=== PATIENT | female | born 1930 | race African-American/Black ===

== ENCOUNTER 2017-09-27 16:03 | Inpatient (IN) | payer MEDICARE, BC ==
[~2017-09-27] VITALS: Ht 165.1 cm; Wt 75.3 kg
[~2017-09-27 16:03] MED LIST: AMLO2.5T45 PO; AZAT50TA24 PO; BRIM15DR2 EACHEYE; CLOP75TA16 PO; FAMO40TA70 PO; FERR325T6 PO; LEVO100T9 PO; METF500T4 PO; PRAV20TA57 PO; REV20 PO; TIOT18CA3 INH; TRAM50TA3 PO
[2017-09-27] MEDS ORDERED: ONDANSETRON HCL 4MG TABLET PO PRN (17:00)
[2017-09-27] MEDS ORDERED: CLONIDINE 0.1MG TABLET PO PRN (17:00)
[2017-09-27] MEDS ORDERED: IPRATROPIUM/ALBUTEROL 0.5-3(2.5)MG/3ML NEB HHN PRN (17:00)
[2017-09-27 17:30] VITALS: BP 100/58
[2017-09-27] MEDS ORDERED: DEXTROSE 50% WATER 50ML SYRINGE IV PRN (18:00)
[2017-09-27] MEDS: METFORMIN HCL 500MG TABLET PO SCH (19:04)
[2017-09-27] MEDS: DOCUSATE SODIUM 250MG CAPSULE PO SCH (19:05)
[2017-09-27] MEDS: IPRATROPIUM/ALBUTEROL 0.5-3(2.5)MG/3ML NEB HHN SCH (19:59)
[2017-09-27 20:00] VITALS: BP 151/62
[2017-09-27] MEDS: AMLODIPINE 5MG TABLET PO SCH (21:00)
[2017-09-27] MEDS: SILDENAFIL CITRATE 20MG TABLET PO SCH (22:44)
[2017-09-27] MEDS: PREGABALIN 50 MG CAPSULE PO SCH (22:44)
[2017-09-28] MEDS: IPRATROPIUM/ALBUTEROL 0.5-3(2.5)MG/3ML NEB HHN SCH ×6 (00:07→21:02)
[2017-09-28] MEDS: HYDROCODONE/ACETAMINOPHEN 10/325MG TABLET PO PRN ×3 (00:48→14:27)
[2017-09-28] MEDS: LEVOTHYROXINE SODIUM 100MCG TABLET PO SCH (06:11)
[2017-09-28] MEDS: BLOOD SUGAR DIAGNOSTIC STRIP TEST SCH ×2 (06:12→17:32)
[2017-09-28] MEDS: SILDENAFIL CITRATE 20MG TABLET PO SCH ×3 (06:12→21:58)
[2017-09-28 06:14] LABS: HEMATOCRIT. 28.7 % (36.0-48.0); HEMOGLOBIN. 9.3 g/dL (12.0-16.0); MEAN CORPUSCULAR HEMOGLOBIN 26.5 pg (28.0-32.0); MEAN PLATELET VOLUME 6.7 fl (7.4-10.4); PLATELET 384 x1000/uL (130-400); RED CELL DISTRIBUTION WIDTH 15.2 % (11.6-14.6)
[2017-09-28 07:19] LABS: CHLORIDE 102 mEq/L (98-107)
[2017-09-28 07:28] LABS: CARBON DIOXIDE 29 mEq/L (21-32); PREALBUMIN 15.7 mg/dL (20.0-40.0)
[2017-09-28 08:00] VITALS: BP 147/49
[2017-09-28] MEDS: INSULIN LISPRO 100 UNITS/ML SUBCUT SCH ×2 (08:00→17:00)
[2017-09-28] MEDS: DOCUSATE SODIUM 250MG CAPSULE PO SCH (08:06)
[2017-09-28] MEDS: AZATHIOPRINE 50MG TABLET PO SCH (08:06)
[2017-09-28] MEDS: CLOPIDOGREL 75MG TABLET PO SCH (08:07)
[2017-09-28] MEDS: METFORMIN HCL 500MG TABLET PO SCH ×2 (08:07→17:13)
[2017-09-28] MEDS: PREGABALIN 50 MG CAPSULE PO SCH ×2 (08:07→21:57)
[2017-09-28] MEDS: AMLODIPINE 5MG TABLET PO SCH ×2 (08:08→21:00)
[2017-09-28] MEDS: ALPHAGAN P 0.1% EYE DROP OP SCH (08:09)
[2017-09-28] MEDS ORDERED: POLYETHYLENE GLYCOL 3350 (17GM) 1 DOSE PACK PO NR ×2 (10:15→20:15)
[2017-09-28 13:24] LABS: CLARITY URINE TURBID (CLEAR); COLOR URINE YELLOW (YELLOW); GLUCOSE URINE NEGATIVE (NEGATIVE); KETONES URINE TRACE (NEGATIVE); LEUKOCYTE ESTERASE URINE 3+ (NEGATIVE); NITRITE URINE NEGATIVE (NEGATIVE); OCCULT BLOOD URINE 3+ (NEGATIVE); PROTEIN URINE 3+ (NEGATIVE); SPECIFIC GRAVITY URINE 1.021 (1.005-1.030); UROBILINOGEN URINE 0.2 E.U./dL (0.2-1.0)
[2017-09-28] MEDS ORDERED: BISACODYL 10MG SUPP PR PRN (13:30)
[2017-09-28] MEDS: LACTULOSE 20G/30ML UDC PO SCH ×3 (14:27→21:57)
[2017-09-28] MEDS ORDERED: NA PHOS,M-B/NA PHOS,DI-BA ENEMA 118ML PR NR (14:30)
[2017-09-28] MEDS ORDERED: BISACODYL 10MG SUPP PR SCH (15:00)
[2017-09-28] MEDS: DOCUSATE SODIUM 100MG CAPSULE PO SCH (17:13)
[2017-09-28 20:00] VITALS: BP 148/58
[2017-09-28 20:59] LABS: PLATELET ESTIMATE NORMAL
[2017-09-28] MEDS: POLYETHYLENE GLYCOL 3350 (17GM) 1 DOSE PACK PO SCH (21:57)
[2017-09-28] MEDS: ATORVASTATIN CALCIUM 20MG TABLET PO SCH (21:57)
[2017-09-29] MEDS: HYDROCODONE/ACETAMINOPHEN 10/325MG TABLET PO PRN ×3 (00:28→20:51)
[2017-09-29] MEDS: IPRATROPIUM/ALBUTEROL 0.5-3(2.5)MG/3ML NEB HHN SCH ×6 (00:30→21:00)
[2017-09-29] MEDS: SILDENAFIL CITRATE 20MG TABLET PO SCH ×3 (06:00→20:49)
[2017-09-29] MEDS: LEVOTHYROXINE SODIUM 100MCG TABLET PO SCH (06:28)
[2017-09-29 06:45] LABS: HEMATOCRIT. 29.3 % (36.0-48.0); HEMOGLOBIN. 9.4 g/dL (12.0-16.0); MEAN CORPUSCULAR HEMOGLOBIN 26.4 pg (28.0-32.0); MEAN CORPUSCULAR VOLUME 82.3 fL (81.0-99.0); MEAN PLATELET VOLUME 6.6 fl (7.4-10.4); PLATELET 450 x1000/uL (130-400); RED BLOOD CELL COUNT 3.56 mill/uL (4.2-5.4); RED CELL DISTRIBUTION WIDTH 15.2 % (11.6-14.6)
[2017-09-29 07:00] VITALS: BP 96/57
[2017-09-29 07:07] LABS: FERRITIN 89 ng/mL (10-291)
[2017-09-29 08:00] LABS: VITAMIN B12 SERUM 1027 pg/mL (211-911)
[2017-09-29] MEDS ORDERED: LEVOFLOXACIN 500MG TABLET PO ONE (08:00)
[2017-09-29] MEDS: INSULIN LISPRO 100 UNITS/ML SUBCUT SCH ×2 (08:00→17:00)
[2017-09-29 08:02] LABS: PHOSPHORUS 3.9 mg/dL (2.5-4.9)
[2017-09-29 08:25] LABS: FOLIC ACID (FOLATE) SERUM > 20.00 ng/mL (>5.38)
[2017-09-29] MEDS: BLOOD SUGAR DIAGNOSTIC STRIP TEST SCH ×2 (08:33→17:55)
[2017-09-29] MEDS: ENOXAPARIN 40MG/0.4ML SYR SUBCUT SCH (08:36)
[2017-09-29] MEDS: ALPHAGAN P 0.1% EYE DROP OP SCH (08:36)
[2017-09-29] MEDS: DOCUSATE SODIUM 100MG CAPSULE PO SCH ×2 (08:37→17:02)
[2017-09-29] MEDS: CLOPIDOGREL 75MG TABLET PO SCH (08:37)
[2017-09-29] MEDS: METFORMIN HCL 500MG TABLET PO SCH ×2 (08:37→17:02)
[2017-09-29] MEDS: PREGABALIN 50 MG CAPSULE PO SCH ×2 (08:37→20:48)
[2017-09-29] MEDS: AMLODIPINE 5MG TABLET PO SCH (08:40)
[2017-09-29] MEDS: BISACODYL 10MG SUPP PR SCH (08:49)
[2017-09-29] MEDS ORDERED: MAGNESIUM 2 G PREMIX 50 ML IV NR (09:00)
[2017-09-29] MEDS ORDERED: NA PHOS,M-B/NA PHOS,DI-BA ENEMA 118ML PR PRN (09:00)
[2017-09-29] MEDS: CEFUROXIME AXETIL 250MG TABLET PO SCH ×2 (09:41→20:47)
[2017-09-29 10:50] VITALS: BP 132/57
[2017-09-29 13:07] LABS: PLATELET ESTIMATE INCREASED
[2017-09-29 14:20] VITALS: BP 120/57
[2017-09-29 20:00] VITALS: BP 131/56
[2017-09-29] MEDS: ATORVASTATIN CALCIUM 20MG TABLET PO SCH (20:47)
[2017-09-29] MEDS: POLYETHYLENE GLYCOL 3350 (17GM) 1 DOSE PACK PO SCH (21:00)
[2017-09-30] MEDS: IPRATROPIUM/ALBUTEROL 0.5-3(2.5)MG/3ML NEB HHN SCH ×6 (00:25→20:28)
[2017-09-30] MEDS: HYDROCODONE/ACETAMINOPHEN 10/325MG TABLET PO PRN ×3 (04:09→16:42)
[2017-09-30] MEDS: LEVOTHYROXINE SODIUM 125MCG TABLET PO SCH (06:50)
[2017-09-30 06:51] LABS: BASOPHILS % 0.6 % (0.0-2.0); HEMATOCRIT. 28.9 % (36.0-48.0); HEMOGLOBIN. 9.3 g/dL (12.0-16.0); LYMPHOCYTES % 7.4 % (20.0-50.0); MEAN CORPUSCULAR HEMOGLOBIN 26.3 pg (28.0-32.0); MEAN CORPUSCULAR VOLUME 81.6 fL (81.0-99.0); MEAN PLATELET VOLUME 6.5 fl (7.4-10.4); MONOCYTES % 11.9 % (2.0-8.0); NEUTROPHILS % 74.1 % (40.0-76.0); PLATELET 457 x1000/uL (130-400); RED BLOOD CELL COUNT 3.54 mill/uL (4.2-5.4)
[2017-09-30] MEDS: SILDENAFIL CITRATE 20MG TABLET PO SCH ×3 (06:51→22:35)
[2017-09-30 07:53] LABS: CARBON DIOXIDE 29 mEq/L (21-32); CHLORIDE 98 mEq/L (98-107); PHOSPHORUS 3.8 mg/dL (2.5-4.9)
[2017-09-30 08:00] VITALS: BP 159/69
[2017-09-30] MEDS: BLOOD SUGAR DIAGNOSTIC STRIP TEST SCH ×2 (08:00→17:00)
[2017-09-30] MEDS: INSULIN LISPRO 100 UNITS/ML SUBCUT SCH ×2 (08:00→17:00)
[2017-09-30] MEDS: CEFUROXIME AXETIL 250MG TABLET PO SCH ×2 (08:53→21:25)
[2017-09-30] MEDS: CLOPIDOGREL 75MG TABLET PO SCH (08:53)
[2017-09-30] MEDS: PREGABALIN 50 MG CAPSULE PO SCH ×2 (08:53→21:25)
[2017-09-30] MEDS: METFORMIN HCL 500MG TABLET PO SCH ×2 (08:53→17:07)
[2017-09-30] MEDS: DOCUSATE SODIUM 100MG CAPSULE PO SCH ×2 (08:53→17:00)
[2017-09-30] MEDS: AMLODIPINE 5MG TABLET PO SCH (08:53)
[2017-09-30] MEDS: AZATHIOPRINE 50MG TABLET PO SCH (08:54)
[2017-09-30] MEDS: BISACODYL 10MG SUPP PR SCH (08:55)
[2017-09-30] MEDS: ENOXAPARIN 40MG/0.4ML SYR SUBCUT SCH (08:55)
[2017-09-30] MEDS: ALPHAGAN P 0.1% EYE DROP OP SCH (09:02)
[2017-09-30] MEDS ORDERED: LEVOFLOXACIN 250MG TABLET PO SCH (11:00)
[2017-09-30 20:00] VITALS: BP 128/59
[2017-09-30] MEDS: POLYETHYLENE GLYCOL 3350 (17GM) 1 DOSE PACK PO SCH (21:00)
[2017-09-30] MEDS: ATORVASTATIN CALCIUM 20MG TABLET PO SCH (21:25)
[2017-09-30] MEDS: CARVEDILOL 3.125 MG TABLET PO SCH (21:25)
[2017-10-01] MEDS: IPRATROPIUM/ALBUTEROL 0.5-3(2.5)MG/3ML NEB HHN SCH ×6 (00:25→20:50)
[2017-10-01] MEDS: HYDROCODONE/ACETAMINOPHEN 10/325MG TABLET PO PRN ×3 (00:53→14:44)
[2017-10-01] MEDS: LEVOTHYROXINE SODIUM 125MCG TABLET PO SCH (06:29)
[2017-10-01] MEDS: SILDENAFIL CITRATE 20MG TABLET PO SCH ×3 (06:29→22:56)
[2017-10-01] MEDS: BLOOD SUGAR DIAGNOSTIC STRIP TEST SCH ×2 (06:30→17:11)
[2017-10-01] MEDS: INSULIN LISPRO 100 UNITS/ML SUBCUT SCH ×2 (06:30→17:00)
[2017-10-01 08:00] VITALS: BP 148/53
[2017-10-01] MEDS: BISACODYL 10MG SUPP PR SCH (09:00)
[2017-10-01] MEDS: AMLODIPINE 5MG TABLET PO SCH (09:16)
[2017-10-01] MEDS: CARVEDILOL 3.125 MG TABLET PO SCH ×2 (09:18→21:00)
[2017-10-01] MEDS: CLOPIDOGREL 75MG TABLET PO SCH (09:19)
[2017-10-01] MEDS: PREGABALIN 50 MG CAPSULE PO SCH ×2 (09:20→21:37)
[2017-10-01] MEDS: DOCUSATE SODIUM 100MG CAPSULE PO SCH ×2 (09:21→17:13)
[2017-10-01] MEDS: METFORMIN HCL 500MG TABLET PO SCH ×2 (09:21→17:13)
[2017-10-01] MEDS: CEFUROXIME AXETIL 250MG TABLET PO SCH (09:22)
[2017-10-01] MEDS: ENOXAPARIN 40MG/0.4ML SYR SUBCUT SCH (09:25)
[2017-10-01] MEDS: ALPHAGAN P 0.1% EYE DROP OP SCH (09:26)
[2017-10-01] MEDS: AMOXICILLIN 500 MG CAPSULE PO SCH ×2 (14:42→22:56)
[2017-10-01 20:00] VITALS: BP 113/53
[2017-10-01] MEDS ORDERED: IRON SUCROSE COMPLEX 100 MG in SODIUM CHLORIDE 0.9% 100 ML IV SCH (21:00)
[2017-10-01] MEDS: POLYETHYLENE GLYCOL 3350 (17GM) 1 DOSE PACK PO SCH (21:00)
[2017-10-01] MEDS: ATORVASTATIN CALCIUM 20MG TABLET PO SCH (21:37)
[2017-10-02] MEDS: HYDROCODONE/ACETAMINOPHEN 10/325MG TABLET PO PRN (00:05)
[2017-10-02] MEDS: IPRATROPIUM/ALBUTEROL 0.5-3(2.5)MG/3ML NEB HHN SCH ×7 (00:38→23:47)
[2017-10-02 06:07] LABS: CARBON DIOXIDE 32 mEq/L (21-32); CHLORIDE 99 mEq/L (98-107); PHOSPHORUS 3.4 mg/dL (2.5-4.9)
[2017-10-02] MEDS: AMOXICILLIN 500 MG CAPSULE PO SCH ×3 (06:07→21:02)
[2017-10-02] MEDS: BLOOD SUGAR DIAGNOSTIC STRIP TEST SCH (06:08)
[2017-10-02] MEDS: LEVOTHYROXINE SODIUM 125MCG TABLET PO SCH (06:08)
[2017-10-02] MEDS: INSULIN LISPRO 100 UNITS/ML SUBCUT SCH (06:08)
[2017-10-02] MEDS: SILDENAFIL CITRATE 20MG TABLET PO SCH ×3 (06:08→21:01)
[2017-10-02 06:39] LABS: HEMATOCRIT. 26.9 % (36.0-48.0); MEAN CORPUSCULAR HEMOGLOBIN 27.5 pg (28.0-32.0); MEAN CORPUSCULAR VOLUME 82.1 fL (81.0-99.0); MEAN PLATELET VOLUME 6.7 fl (7.4-10.4); PLATELET 390 x1000/uL (130-400); RED BLOOD CELL COUNT 3.27 mill/uL (4.2-5.4)
[2017-10-02] MEDS ORDERED: NA PHOS,M-B/NA PHOS,DI-BA ENEMA 118ML PR ONE (07:45)
[2017-10-02 08:00] VITALS: BP 130/60
[2017-10-02] MEDS: LACTULOSE 20G/30ML UDC PO SCH ×2 (08:53→08:58)
[2017-10-02] MEDS: METFORMIN HCL 500MG TABLET PO SCH ×2 (08:54→16:58)
[2017-10-02] MEDS: DOCUSATE SODIUM 100MG CAPSULE PO SCH ×2 (08:54→16:59)
[2017-10-02] MEDS: CLOPIDOGREL 75MG TABLET PO SCH (08:54)
[2017-10-02] MEDS: CARVEDILOL 3.125 MG TABLET PO SCH ×2 (08:54→21:00)
[2017-10-02] MEDS: AMLODIPINE 5MG TABLET PO SCH (08:55)
[2017-10-02] MEDS: ENOXAPARIN 40MG/0.4ML SYR SUBCUT SCH (08:55)
[2017-10-02] MEDS: BISACODYL 10MG SUPP PR SCH (08:58)
[2017-10-02] MEDS: ALPHAGAN P 0.1% EYE DROP OP SCH (08:59)
[2017-10-02] MEDS ORDERED: PREGABALIN 75MG CAPSULE PO SCH (09:00)
[2017-10-02 10:12] LABS: PLATELET ESTIMATE NORMAL
[2017-10-02] MEDS ORDERED: LACTULOSE 20G/30ML UDC PO PRN (13:00)
[2017-10-02 14:00] VITALS: BP 156/50
[2017-10-02 20:00] VITALS: BP 159/55
[2017-10-02] MEDS ORDERED: IRON SUCROSE COMPLEX 100 MG in SODIUM CHLORIDE 0.9% 100 ML IV SCH (21:00)
[2017-10-02] MEDS: ATORVASTATIN CALCIUM 20MG TABLET PO SCH (21:01)
[2017-10-02] MEDS: PREGABALIN 75MG CAPSULE PO SCH (21:01)
[2017-10-02] MEDS: POLYETHYLENE GLYCOL 3350 (17GM) 1 DOSE PACK PO SCH (21:03)
[2017-10-03] MEDS: ACETAMINOPHEN 325MG TABLET PO PRN ×3 (00:20→23:35)
[2017-10-03] MEDS: IPRATROPIUM/ALBUTEROL 0.5-3(2.5)MG/3ML NEB HHN SCH ×5 (04:04→19:54)
[2017-10-03] MEDS: AMOXICILLIN 500 MG CAPSULE PO SCH ×3 (06:02→21:41)
[2017-10-03] MEDS: LEVOTHYROXINE SODIUM 125MCG TABLET PO SCH (06:03)
[2017-10-03] MEDS: SILDENAFIL CITRATE 20MG TABLET PO SCH ×3 (06:03→21:42)
[2017-10-03 08:00] VITALS: BP 149/62
[2017-10-03] MEDS: BISACODYL 10MG SUPP PR SCH (09:00)
[2017-10-03] MEDS: METFORMIN HCL 500MG TABLET PO SCH ×2 (09:09→17:00)
[2017-10-03] MEDS: PREGABALIN 75MG CAPSULE PO SCH ×2 (09:09→21:41)
[2017-10-03] MEDS: DOCUSATE SODIUM 100MG CAPSULE PO SCH ×2 (09:10→17:00)
[2017-10-03] MEDS: CARVEDILOL 3.125 MG TABLET PO SCH ×2 (09:10→21:00)
[2017-10-03] MEDS: CLOPIDOGREL 75MG TABLET PO SCH (09:10)
[2017-10-03] MEDS: AMLODIPINE 5MG TABLET PO SCH (09:10)
[2017-10-03] MEDS: AZATHIOPRINE 50MG TABLET PO SCH (09:10)
[2017-10-03] MEDS: ENOXAPARIN 40MG/0.4ML SYR SUBCUT SCH (09:11)
[2017-10-03] MEDS: ALPHAGAN P 0.1% EYE DROP OP SCH (09:26)
[2017-10-03 17:12] LABS: 25-HYDROXY VITAMIN D3 63 ng/mL (.)
[2017-10-03 20:00] VITALS: BP 132/66
[2017-10-03] MEDS: POLYETHYLENE GLYCOL 3350 (17GM) 1 DOSE PACK PO SCH (21:00)
[2017-10-03] MEDS: IRON SUCROSE COMPLEX 100 MG in SODIUM CHLORIDE 0.9% 50 ML IV SCH (21:41)
[2017-10-03] MEDS: ATORVASTATIN CALCIUM 20MG TABLET PO SCH (21:41)
[2017-10-04] MEDS: IPRATROPIUM/ALBUTEROL 0.5-3(2.5)MG/3ML NEB HHN SCH ×6 (00:19→20:24)
[2017-10-04 05:49] LABS: HEMATOCRIT. 25.1 % (36.0-48.0); HEMOGLOBIN. 8.2 g/dL (12.0-16.0); MEAN CORPUSCULAR VOLUME 82.4 fL (81.0-99.0); MEAN PLATELET VOLUME 6.6 fl (7.4-10.4); PLATELET 384 x1000/uL (130-400); RED BLOOD CELL COUNT 3.04 mill/uL (4.2-5.4); RED CELL DISTRIBUTION WIDTH 14.8 % (11.6-14.6)
[2017-10-04 06:24] LABS: CHLORIDE 102 mEq/L (98-107)
[2017-10-04] MEDS: AMOXICILLIN 500 MG CAPSULE PO SCH ×3 (06:36→22:42)
[2017-10-04] MEDS: SILDENAFIL CITRATE 20MG TABLET PO SCH ×3 (06:36→22:41)
[2017-10-04] MEDS: LEVOTHYROXINE SODIUM 125MCG TABLET PO SCH (06:36)
[2017-10-04 06:46] LABS: CARBON DIOXIDE 29 mEq/L (21-32); PHOSPHORUS 3.1 mg/dL (2.5-4.9)
[2017-10-04 08:00] VITALS: BP 139/64
[2017-10-04] MEDS: ALPHAGAN P 0.1% EYE DROP OP SCH (08:49)
[2017-10-04] MEDS: CLOPIDOGREL 75MG TABLET PO SCH (08:50)
[2017-10-04] MEDS: METFORMIN HCL 500MG TABLET PO SCH ×2 (08:50→16:10)
[2017-10-04] MEDS: PREGABALIN 75MG CAPSULE PO SCH ×2 (08:50→22:41)
[2017-10-04] MEDS: AMLODIPINE 5MG TABLET PO SCH (08:50)
[2017-10-04] MEDS: DOCUSATE SODIUM 100MG CAPSULE PO SCH ×2 (08:50→16:10)
[2017-10-04] MEDS: CARVEDILOL 3.125 MG TABLET PO SCH ×2 (08:51→21:00)
[2017-10-04] MEDS: ENOXAPARIN 40MG/0.4ML SYR SUBCUT SCH (08:51)
[2017-10-04] MEDS: HYDROCODONE/ACETAMINOPHEN 10/325MG TABLET PO PRN ×2 (08:52→13:46)
[2017-10-04] MEDS: BISACODYL 10MG SUPP PR SCH (08:53)
[2017-10-04 12:21] LABS: PLATELET ESTIMATE NORMAL
[2017-10-04 20:00] VITALS: BP 137/60
[2017-10-04] MEDS: POLYETHYLENE GLYCOL 3350 (17GM) 1 DOSE PACK PO SCH (22:40)
[2017-10-04] MEDS: IRON SUCROSE COMPLEX 100 MG in SODIUM CHLORIDE 0.9% 50 ML IV SCH (22:40)
[2017-10-04] MEDS: ATORVASTATIN CALCIUM 20MG TABLET PO SCH (22:41)
[2017-10-05] MEDS: IPRATROPIUM/ALBUTEROL 0.5-3(2.5)MG/3ML NEB HHN SCH ×5 (00:24→21:31)
[2017-10-05] MEDS: NA PHOS,M-B/NA PHOS,DI-BA ENEMA 118ML PR NR (06:15)
[2017-10-05] MEDS ORDERED: ONDANSETRON HCL 4MG TABLET PO PRN (06:15)
[2017-10-05] MEDS ORDERED: NA PHOS,M-B/NA PHOS,DI-BA ENEMA 118ML PR PRN (06:15)
[2017-10-05] MEDS ORDERED: ACETAMINOPHEN 325MG TABLET PO PRN (06:15)
[2017-10-05] MEDS ORDERED: IPRATROPIUM/ALBUTEROL 0.5-3(2.5)MG/3ML NEB HHN PRN (06:15)
[2017-10-05] MEDS ORDERED: IRON SUCROSE COMPLEX 100 MG in SODIUM CHLORIDE 0.9% 50 ML IV SCH (06:15)
[2017-10-05] MEDS ORDERED: CLONIDINE 0.1MG TABLET PO PRN (06:15)
[2017-10-05] MEDS: SILDENAFIL CITRATE 20MG TABLET PO SCH ×3 (06:40→22:35)
[2017-10-05] MEDS: LEVOTHYROXINE SODIUM 125MCG TABLET PO SCH (06:40)
[2017-10-05] MEDS: AMOXICILLIN 500 MG CAPSULE PO SCH ×3 (06:40→22:34)
[2017-10-05 08:00] VITALS: BP 138/52
[2017-10-05] MEDS ORDERED: PREGABALIN 75MG CAPSULE PO SCH (09:00)
[2017-10-05] MEDS ORDERED: ZINC SULFATE 220 MG ( 50 ) CAPSULE PO SCH (09:00)
[2017-10-05] MEDS: ALPHAGAN P 0.1% EYE DROP OP SCH (09:00)
[2017-10-05] MEDS: BISACODYL 10MG SUPP PR SCH (09:00)
[2017-10-05] MEDS: PREGABALIN 75MG CAPSULE PO SCH ×2 (09:00→21:14)
[2017-10-05] MEDS ORDERED: AMLODIPINE 5MG TABLET PO SCH (09:00)
[2017-10-05] MEDS ORDERED: ASCORBIC ACID 500 MG TABLET PO SCH (09:00)
[2017-10-05] MEDS: CLOPIDOGREL 75MG TABLET PO SCH (09:17)
[2017-10-05] MEDS: AZATHIOPRINE 50MG TABLET PO SCH (09:19)
[2017-10-05] MEDS: ZINC SULFATE 220 MG ( 50 ) CAPSULE PO SCH (09:19)
[2017-10-05] MEDS: METFORMIN HCL 500MG TABLET PO SCH ×2 (09:20→17:57)
[2017-10-05] MEDS: ASCORBIC ACID 500 MG TABLET PO SCH (09:20)
[2017-10-05] MEDS: AMLODIPINE 5MG TABLET PO SCH (09:21)
[2017-10-05] MEDS: CARVEDILOL 3.125 MG TABLET PO SCH ×2 (09:21→21:13)
[2017-10-05] MEDS: DOCUSATE SODIUM 100MG CAPSULE PO SCH ×2 (09:22→17:57)
[2017-10-05] MEDS: HYDROCODONE/ACETAMINOPHEN 10/325MG TABLET PO PRN (09:23)
[2017-10-05] MEDS: ENOXAPARIN 40MG/0.4ML SYR SUBCUT SCH (09:23)
[2017-10-05 20:00] VITALS: BP 133/40
[2017-10-05] MEDS: POLYETHYLENE GLYCOL 3350 (17GM) 1 DOSE PACK PO SCH (21:00)
[2017-10-05] MEDS: ATORVASTATIN CALCIUM 20MG TABLET PO SCH (21:13)
[2017-10-06] MEDS: IPRATROPIUM/ALBUTEROL 0.5-3(2.5)MG/3ML NEB HHN SCH ×6 (01:20→20:13)
[2017-10-06] MEDS: NA PHOS,M-B/NA PHOS,DI-BA ENEMA 118ML PR NR (06:48)
[2017-10-06] MEDS: SILDENAFIL CITRATE 20MG TABLET PO SCH ×3 (06:48→23:16)
[2017-10-06] MEDS: AMOXICILLIN 500 MG CAPSULE PO SCH ×2 (06:48→14:17)
[2017-10-06] MEDS: LEVOTHYROXINE SODIUM 125MCG TABLET PO SCH (06:48)
[2017-10-06 07:00] VITALS: BP 147/55
[2017-10-06] MEDS: HYDROCODONE/ACETAMINOPHEN 10/325MG TABLET PO PRN ×2 (07:29→14:18)
[2017-10-06 07:45] LABS: HEMATOCRIT. 26.5 % (36.0-48.0); HEMOGLOBIN. 8.5 g/dL (12.0-16.0); MEAN CORPUSCULAR HEMOGLOBIN 26.6 pg (28.0-32.0); MEAN CORPUSCULAR VOLUME 82.7 fL (81.0-99.0); MEAN PLATELET VOLUME 6.5 fl (7.4-10.4); PLATELET 391 x1000/uL (130-400); RED CELL DISTRIBUTION WIDTH 15.4 % (11.6-14.6)
[2017-10-06 08:21] LABS: CARBON DIOXIDE 33 mEq/L (21-32); CHLORIDE 101 mEq/L (98-107); PHOSPHORUS 3.4 mg/dL (2.5-4.9)
[2017-10-06] MEDS: ALPHAGAN P 0.1% EYE DROP OP SCH (08:58)
[2017-10-06] MEDS: BISACODYL 10MG SUPP PR SCH (09:00)
[2017-10-06 09:20] LABS: PLATELET ESTIMATE NORMAL
[2017-10-06] MEDS: PREGABALIN 50 MG CAPSULE PO SCH ×2 (09:44→21:49)
[2017-10-06] MEDS: ENOXAPARIN 40MG/0.4ML SYR SUBCUT SCH (09:45)
[2017-10-06] MEDS: ASCORBIC ACID 500 MG TABLET PO SCH (09:46)
[2017-10-06] MEDS: AMLODIPINE 5MG TABLET PO SCH (09:46)
[2017-10-06] MEDS: ZINC SULFATE 220 MG ( 50 ) CAPSULE PO SCH (09:46)
[2017-10-06] MEDS: METFORMIN HCL 500MG TABLET PO SCH ×2 (09:46→16:28)
[2017-10-06] MEDS: CLOPIDOGREL 75MG TABLET PO SCH (09:46)
[2017-10-06] MEDS: DOCUSATE SODIUM 100MG CAPSULE PO SCH ×2 (09:46→16:28)
[2017-10-06] MEDS: CARVEDILOL 3.125 MG TABLET PO SCH ×2 (09:47→21:49)
[2017-10-06 13:55] VITALS: BP 114/42
[2017-10-06 20:00] VITALS: BP 124/36
[2017-10-06] MEDS: POLYETHYLENE GLYCOL 3350 (17GM) 1 DOSE PACK PO SCH (21:00)
[2017-10-06] MEDS ORDERED: IRON SUCROSE COMPLEX 100 MG in SODIUM CHLORIDE 0.9% 50 ML IV SCH (21:00)
[2017-10-06] MEDS: ATORVASTATIN CALCIUM 20MG TABLET PO SCH (21:49)
[2017-10-07] MEDS: IPRATROPIUM/ALBUTEROL 0.5-3(2.5)MG/3ML NEB HHN SCH ×6 (00:16→20:39)
[2017-10-07] MEDS: HYDROCODONE/ACETAMINOPHEN 10/325MG TABLET PO PRN ×2 (03:31→20:38)
[2017-10-07] MEDS: NA PHOS,M-B/NA PHOS,DI-BA ENEMA 118ML PR NR (06:31)
[2017-10-07] MEDS: LEVOTHYROXINE SODIUM 125MCG TABLET PO SCH (06:39)
[2017-10-07] MEDS: SILDENAFIL CITRATE 20MG TABLET PO SCH ×3 (06:39→21:58)
[2017-10-07 08:00] VITALS: BP 147/51
[2017-10-07] MEDS: ENOXAPARIN 40MG/0.4ML SYR SUBCUT SCH (08:58)
[2017-10-07] MEDS: PREGABALIN 50 MG CAPSULE PO SCH ×2 (08:59→21:23)
[2017-10-07] MEDS: ZINC SULFATE 220 MG ( 50 ) CAPSULE PO SCH (08:59)
[2017-10-07] MEDS: METFORMIN HCL 500MG TABLET PO SCH ×2 (08:59→17:20)
[2017-10-07] MEDS: ASCORBIC ACID 500 MG TABLET PO SCH (08:59)
[2017-10-07] MEDS: CARVEDILOL 3.125 MG TABLET PO SCH (08:59)
[2017-10-07] MEDS: CLOPIDOGREL 75MG TABLET PO SCH (08:59)
[2017-10-07] MEDS: DOCUSATE SODIUM 100MG CAPSULE PO SCH ×2 (08:59→17:20)
[2017-10-07] MEDS: AZATHIOPRINE 50MG TABLET PO SCH (09:00)
[2017-10-07] MEDS: AMLODIPINE 5MG TABLET PO SCH (09:00)
[2017-10-07] MEDS: BISACODYL 10MG SUPP PR SCH (09:00)
[2017-10-07] MEDS: ALPHAGAN P 0.1% EYE DROP OP SCH (09:12)
[2017-10-07] MEDS ORDERED: PREG100C PO (13:32)
[2017-10-07 13:45] VITALS: BP 100/46
[2017-10-07 20:00] VITALS: BP 129/51
[2017-10-07] MEDS: ATORVASTATIN CALCIUM 20MG TABLET PO SCH (20:36)
[2017-10-07] MEDS: POLYETHYLENE GLYCOL 3350 (17GM) 1 DOSE PACK PO SCH (20:39)
[2017-10-08] MEDS: IPRATROPIUM/ALBUTEROL 0.5-3(2.5)MG/3ML NEB HHN SCH ×4 (00:26→12:18)
[2017-10-08] MEDS: LEVOTHYROXINE SODIUM 125MCG TABLET PO SCH (06:51)
[2017-10-08] MEDS: SILDENAFIL CITRATE 20MG TABLET PO SCH ×2 (06:57→15:11)
[2017-10-08 08:00] VITALS: BP 136/50
[2017-10-08] MEDS: METFORMIN HCL 500MG TABLET PO SCH (08:58)
[2017-10-08] MEDS: PREGABALIN 50 MG CAPSULE PO SCH (08:58)
[2017-10-08] MEDS: ZINC SULFATE 220 MG ( 50 ) CAPSULE PO SCH (08:58)
[2017-10-08] MEDS: CLOPIDOGREL 75MG TABLET PO SCH (08:58)
[2017-10-08] MEDS: AMLODIPINE 5MG TABLET PO SCH (08:59)
[2017-10-08] MEDS: DOCUSATE SODIUM 100MG CAPSULE PO SCH (08:59)
[2017-10-08] MEDS: ALPHAGAN P 0.1% EYE DROP OP SCH (09:00)
[2017-10-08] MEDS: BISACODYL 10MG SUPP PR SCH (09:00)
[2017-10-08] MEDS: ENOXAPARIN 40MG/0.4ML SYR SUBCUT SCH (09:00)
[2017-10-08] MEDS: HYDROCODONE/ACETAMINOPHEN 10/325MG TABLET PO PRN (15:14)
[2017-10-08 16:58] VITALS: BP 136/50
== END 2017-10-08 18:00 | disposition home health service (06) | DRG 551 ==
LOC: UNDODISIN 10-04 21:00
PROVIDERS: ADMIT Physical Medicine & Rehabilitation Spinal Cord Injury Medicine; ATTEND Internal Medicine
DX: M48.061 Spinal stenosis, lumbar region without neurogenic claudication (principal); E43 Unspecified severe protein-calorie malnutrition; L89.152 Pressure ulcer of sacral region, stage 2; E11.42 Type 2 diabetes mellitus with diabetic polyneuropathy; G82.20 Paraplegia, unspecified; E11.51 Type 2 diabetes mellitus with diabetic peripheral angiopathy without gangrene; I27.20 Pulmonary hypertension, unspecified; N39.0 Urinary tract infection, site not specified; E87.1 Hypo-osmolality and hyponatremia; D64.9 Anemia, unspecified; E03.9 Hypothyroidism, unspecified; E78.5 Hyperlipidemia, unspecified; G25.81 Restless legs syndrome; G89.4 Chronic pain syndrome; I10 Essential (primary) hypertension; K59.00 Constipation, unspecified; J44.9 Chronic obstructive pulmonary disease, unspecified; M19.90 Unspecified osteoarthritis, unspecified site; M51.26 Other intervertebral disc displacement, lumbar region; I65.29 Occlusion and stenosis of unspecified carotid artery; M43.16 Spondylolisthesis, lumbar region; J98.01 Acute bronchospasm; M54.30 Sciatica, unspecified side; B95.2 Enterococcus as the cause of diseases classified elsewhere; R26.9 Unspecified abnormalities of gait and mobility; R53.81 Other malaise; M51.27 Other intervertebral disc displacement, lumbosacral region; Z99.81 Dependence on supplemental oxygen; Z87.448 Personal history of other diseases of urinary system; Z87.891 Personal history of nicotine dependence; Z79.899 Other long term (current) drug therapy; Z68.27 Body mass index [BMI] 27.0-27.9, adult
CPT/HCPCS: 36415; 71010; 80048; 80053; 80061; 81001; 82270; 82306; 82607; 82728; 82746; 82962; 83036; 83540; 83550; 83735; 84100; 84134; 84443; 84630; 85025; 87077; 87086; 87186; 93970; 94640; 94664; 97110; 97116; 97162; 97166; 97530; 97535; C1893; J1650; J3475; J7040; J7050; J7500; J7620

== ENCOUNTER 2020-08-05 19:47 | Emergency (ER) | payer BC, MEDICARE ==
[~2020-08-05] VITALS: Ht 160 cm; Wt 64.0 kg
[~2020-08-05 19:47] MED LIST changes: -CLOP75TA16 PO; +CLOP75TA4 PO; -FERR325T6 PO; +METF-414 PO; -METF500T4 PO; +PREG100C PO
[2020-08-06 00:34] LABS: CHLORIDE 106 mEq/L (98-107)
[2020-08-06 00:45] LABS: HEMATOCRIT 25.9 % (36.0-48.0); HEMOGLOBIN 8.4 g/dL (12.0-16.0); MEAN CORPUSCULAR HEMOGLOBIN 26.9 pg (28.0-32.0); MEAN CORPUSCULAR VOLUME 83.3 fL (81.0-99.0); PLATELET 422 x1000/uL (130-400); RED BLOOD CELL COUNT 3.11 mill/uL (4.2-5.4); RED CELL DISTRIBUTION WIDTH 16.5 % (11.6-14.6)
[2020-08-06 01:35] VITALS: BP 129/72
== END 2020-08-06 01:20 | disposition home or self-care (01) ==
LOC: ER 19:47
DX: D64.9 Anemia, unspecified (principal); I49.9 Cardiac arrhythmia, unspecified; E11.9 Type 2 diabetes mellitus without complications; I10 Essential (primary) hypertension; J44.9 Chronic obstructive pulmonary disease, unspecified; Z79.899 Other long term (current) drug therapy; Z98.890 Other specified postprocedural states
CPT/HCPCS: 36415; 80053; 85027; 86850; 86900; 93005; 99284

== ENCOUNTER 2022-08-07 22:24 | Inpatient (IN) | payer BC ==
[~2022-08-07] VITALS: Ht 165.1 cm; Wt 78.1 kg
[~2022-08-07 22:24] MED LIST changes: +CLOP-31 PO; -CLOP75TA4 PO
[2022-08-07] MEDS ORDERED: SODIUM CHLORIDE 0.9% 1,000 ML IV ONE (23:15)
[2022-08-08 00:02] LABS: HEMATOCRIT. 28.8 % (36.0-48.0); HEMOGLOBIN. 9.3 g/dL (12.0-16.0); MEAN CORPUSCULAR HEMOGLOBIN 26.1 pg (28.0-32.0); MEAN CORPUSCULAR VOLUME 81.1 fL (81.0-99.0); MEAN PLATELET VOLUME 6.9 fl (7.4-10.4); PLATELET 226 x1000/uL (130-400); RED BLOOD CELL COUNT 3.55 mill/uL (4.2-5.4); RED CELL DISTRIBUTION WIDTH 16.9 % (11.6-14.6)
[2022-08-08 00:10] LABS: CHLORIDE 104 mEq/L (98-107)
[2022-08-08 02:54] LABS: PLATELET ESTIMATE NORMAL
[2022-08-08] MEDS ORDERED: ASPIRIN 81MG TABLET PO ONE (04:15)
[2022-08-08] MEDS ORDERED: ASPIRIN 81MG TABLET PO NR (06:45)
[2022-08-08 06:51] LABS: CLARITY URINE CLEAR (CLEAR); COLOR URINE YELLOW (YELLOW); KETONES URINE NEGATIVE (NEGATIVE); LEUKOCYTE ESTERASE URINE NEGATIVE (NEGATIVE); NITRITE URINE NEGATIVE (NEGATIVE); OCCULT BLOOD URINE NEGATIVE (NEGATIVE); PH URINE 5.5 (4.5-8.0); PROTEIN URINE 3+ (NEGATIVE); SPECIFIC GRAVITY URINE 1.015 (1.005-1.030); UROBILINOGEN URINE 0.2 E.U./dL (0.2-1.0)
[2022-08-08 10:35] VITALS: BP 142/59
[2022-08-08 12:00] VITALS: BP 142/59
[2022-08-08 16:00] VITALS: BP 158/65
[2022-08-08] MEDS: SILDENAFIL CITRATE 20MG TABLET PO SCH ×2 (18:08→23:16)
[2022-08-08] MEDS: ENOXAPARIN 30MG/0.3ML SYR SUBCUT SCH (18:09)
[2022-08-08 18:10] LABS: HEMATOCRIT 28.9 % (36.0-48.0); HEMOGLOBIN 9.1 g/dL (12.0-16.0); MEAN CORPUSCULAR HEMOGLOBIN 26.2 pg (28.0-32.0); PLATELET 209 x1000/uL (130-400); RED BLOOD CELL COUNT 3.48 mill/uL (4.2-5.4); RED CELL DISTRIBUTION WIDTH 16.8 % (11.6-14.6)
[2022-08-08 18:17] LABS: CHLORIDE 110 mEq/L (98-107)
[2022-08-08] MEDS: ALBUTEROL (0.083%) 2.5MG/3ML NEB HHN SCH (19:54)
[2022-08-08 20:00] VITALS: BP 146/54
[2022-08-08] MEDS: GUAIFENESIN 200MG/10ML SUGAR FREE UDC PO PRN (23:14)
[2022-08-08] MEDS: ATORVASTATIN CALCIUM 10MG TABLET PO SCH (23:16)
[2022-08-09] MEDS: ALBUTEROL (0.083%) 2.5MG/3ML NEB HHN SCH
[2022-08-09 06:00] VITALS: BP 160/56
[2022-08-09 06:35] LABS: HEMATOCRIT. 27.2 % (36.0-48.0); HEMOGLOBIN. 8.7 g/dL (12.0-16.0); MEAN CORPUSCULAR VOLUME 81.8 fL (81.0-99.0); MEAN PLATELET VOLUME 7.5 fl (7.4-10.4); PLATELET 198 x1000/uL (130-400); RED BLOOD CELL COUNT 3.33 mill/uL (4.2-5.4); RED CELL DISTRIBUTION WIDTH 16.6 % (11.6-14.6)
[2022-08-09] MEDS: SILDENAFIL CITRATE 20MG TABLET PO SCH ×3 (06:58→21:17)
[2022-08-09 08:00] VITALS: BP 133/46
[2022-08-09] MEDS ORDERED: CLONIDINE 0.1MG TABLET PO PRN (08:00)
[2022-08-09] MEDS: AMLODIPINE 2.5MG TABLET PO SCH (08:27)
[2022-08-09] MEDS: ACETAMINOPHEN 325MG TABLET PO PRN (08:28)
[2022-08-09 12:00] VITALS: BP 121/46
[2022-08-09] MEDS: LEVOTHYROXINE SODIUM 100MCG TABLET PO SCH (13:36)
[2022-08-09] MEDS: GUAIFENESIN 200MG/10ML SUGAR FREE UDC PO PRN (13:36)
[2022-08-09] MEDS: OMEPRAZOLE 20MG CAPSULE EXTENDED RELEASE PO SCH (13:37)
[2022-08-09] MEDS ORDERED: IRON SUCROSE COMPLEX 100 MG/5 ML ML IV NR (13:45)
[2022-08-09] MEDS ORDERED: LEVO75TA7 MT (13:48)
[2022-08-09] MEDS ORDERED: PREG75CA MT (13:48)
[2022-08-09] MEDS ORDERED: FLUT1BLS3 INH (13:48)
[2022-08-09] MEDS ORDERED: BRIM5DRO6 EACHEYE (13:48)
[2022-08-09] MEDS ORDERED: OMEP20TA23 MT (13:48)
[2022-08-09] MEDS: FLUTICASONE/VILANTEROL 200-25 BLST.W.DEV ORI SCH (15:54)
[2022-08-09] MEDS: ENOXAPARIN 30MG/0.3ML SYR SUBCUT SCH (15:55)
[2022-08-09 16:00] VITALS: BP 123/43
[2022-08-09 16:40] LABS: PLATELET ESTIMATE NORMAL
[2022-08-09 20:00] VITALS: BP 151/50
[2022-08-09] MEDS: DEXAMETHASONE 10 MG/ML VIAL IV SCH (21:16)
[2022-08-09] MEDS: ATORVASTATIN CALCIUM 10MG TABLET PO SCH (21:17)
[2022-08-10] VITALS: BP 155/53
[2022-08-10 04:00] VITALS: BP 162/52
[2022-08-10] MEDS: SILDENAFIL CITRATE 20MG TABLET PO SCH ×3 (05:10→22:04)
[2022-08-10] MEDS: ACETAMINOPHEN 325MG TABLET PO PRN (05:10)
[2022-08-10] MEDS: ALBUTEROL (0.083%) 2.5MG/3ML NEB HHN SCH (05:11)
[2022-08-10 08:00] VITALS: BP 133/42
[2022-08-10] MEDS: AMLODIPINE 2.5MG TABLET PO SCH (08:12)
[2022-08-10] MEDS: OMEPRAZOLE 20MG CAPSULE EXTENDED RELEASE PO SCH (08:13)
[2022-08-10] MEDS: LEVOTHYROXINE SODIUM 100MCG TABLET PO SCH (08:13)
[2022-08-10] MEDS: FLUTICASONE/VILANTEROL 200-25 BLST.W.DEV ORI SCH (08:20)
[2022-08-10] MEDS: FERROUS SULFATE 325MG TABLET PO SCH ×2 (11:58→17:13)
[2022-08-10 12:00] VITALS: BP 161/47
[2022-08-10 13:12] LABS: HEMATOCRIT. 25.8 % (36.0-48.0); HEMOGLOBIN. 8.1 g/dL (12.0-16.0); MEAN CORPUSCULAR VOLUME 82.3 fL (81.0-99.0); MEAN PLATELET VOLUME 7.5 fl (7.4-10.4); PLATELET 215 x1000/uL (130-400); RED BLOOD CELL COUNT 3.13 mill/uL (4.2-5.4); RED CELL DISTRIBUTION WIDTH 16.9 % (11.6-14.6)
[2022-08-10 16:00] VITALS: BP 144/51
[2022-08-10] MEDS: ENOXAPARIN 30MG/0.3ML SYR SUBCUT SCH (17:13)
[2022-08-10 17:30] LABS: PLATELET ESTIMATE NORMAL
[2022-08-10 20:00] VITALS: BP 119/39
[2022-08-10] MEDS: DEXAMETHASONE 10 MG/ML VIAL IV SCH (22:04)
[2022-08-10] MEDS: ATORVASTATIN CALCIUM 10MG TABLET PO SCH (22:04)
[2022-08-11] VITALS (7 sets, daily range): BP systolic 113–176; BP diastolic 42–82
[2022-08-11] MEDS: ALBUTEROL (0.083%) 2.5MG/3ML NEB HHN SCH ×4 (06:00→18:00)
[2022-08-11] MEDS: SILDENAFIL CITRATE 20MG TABLET PO SCH ×3 (06:49→21:10)
[2022-08-11] MEDS: OMEPRAZOLE 20MG CAPSULE EXTENDED RELEASE PO SCH (06:49)
[2022-08-11 06:51] LABS: HEMATOCRIT. 24.6 % (36.0-48.0); HEMOGLOBIN. 8.1 g/dL (12.0-16.0); MEAN CORPUSCULAR HEMOGLOBIN 26.5 pg (28.0-32.0); MEAN CORPUSCULAR VOLUME 80.6 fL (81.0-99.0); MEAN PLATELET VOLUME 7.6 fl (7.4-10.4); PLATELET 232 x1000/uL (130-400); RED BLOOD CELL COUNT 3.05 mill/uL (4.2-5.4); RED CELL DISTRIBUTION WIDTH 16.8 % (11.6-14.6)
[2022-08-11] MEDS: ACETAMINOPHEN 325MG TABLET PO PRN (06:58)
[2022-08-11 07:29] LABS: VITAMIN B12 SERUM 1663 pg/mL (211-911)
[2022-08-11] MEDS: FERROUS SULFATE 325MG TABLET PO SCH ×2 (08:33→17:13)
[2022-08-11] MEDS: AMLODIPINE 2.5MG TABLET PO SCH (08:33)
[2022-08-11] MEDS: LEVOTHYROXINE SODIUM 100MCG TABLET PO SCH (08:33)
[2022-08-11] MEDS: FLUTICASONE/VILANTEROL 200-25 BLST.W.DEV ORI SCH (08:37)
[2022-08-11] MEDS ORDERED: SODIUM CHLORIDE 0.9% 500 ML IV ONE (10:00)
[2022-08-11] MEDS ORDERED: FLUT1BLS ORI (12:24)
[2022-08-11] MEDS ORDERED: AMLO5TAB88 PO (12:24)
[2022-08-11] MEDS ORDERED: REV20 PO (12:24)
[2022-08-11] MEDS ORDERED: DEXA6TAB MT (12:24)
[2022-08-11] MEDS ORDERED: OMEP20CA14 PO (12:24)
[2022-08-11] MEDS ORDERED: ALBU2.5V13 HHN (12:24)
[2022-08-11] MEDS ORDERED: FERR-63 PO (12:24)
[2022-08-11] MEDS ORDERED: ATOR10TA PO (12:24)
[2022-08-11] MEDS ORDERED: LEVO100T9 PO (12:24)
[2022-08-11] MEDS: ENOXAPARIN 30MG/0.3ML SYR SUBCUT SCH (17:10)
[2022-08-11 17:19] LABS: PLATELET ESTIMATE NORMAL
[2022-08-11] MEDS: ATORVASTATIN CALCIUM 10MG TABLET PO SCH (21:10)
[2022-08-11] MEDS: DEXAMETHASONE 10 MG/ML VIAL IV SCH (21:10)
[2022-08-12] VITALS: BP 162/60
[2022-08-12] MEDS ORDERED: AMLODIPINE 5MG TABLET PO SCH (09:00)
== END 2022-08-12 00:50 | disposition home or self-care (01) | DRG 177 ==
LOC: ER 22:24 → EDBEDREQ 23:19 → EDBEDREQTM 08-08 00:58 → EDBEDREQ 08-08 01:48 → EDBEDREQTM 08-08 01:48 → 8WST 08-08 10:54 → 7WST 08-08 20:56
PROVIDERS: ADMIT Family Medicine; ATTEND Family Medicine
DX: U07.1 COVID-19 (principal); I21.4 Non-ST elevation (NSTEMI) myocardial infarction; N17.0 Acute kidney failure with tubular necrosis; I27.20 Pulmonary hypertension, unspecified; I10 Essential (primary) hypertension; J44.9 Chronic obstructive pulmonary disease, unspecified; H40.9 Unspecified glaucoma; E78.5 Hyperlipidemia, unspecified; E03.9 Hypothyroidism, unspecified; D50.9 Iron deficiency anemia, unspecified; I49.5 Sick sinus syndrome; K59.00 Constipation, unspecified; M54.30 Sciatica, unspecified side; I25.10 Atherosclerotic heart disease of native coronary artery without angina pectoris; E11.42 Type 2 diabetes mellitus with diabetic polyneuropathy; G62.9 Polyneuropathy, unspecified; R26.89 Other abnormalities of gait and mobility; I44.1 Atrioventricular block, second degree; Z95.0 Presence of cardiac pacemaker; Z82.49 Family history of ischemic heart disease and other diseases of the circulatory system; Z79.899 Other long term (current) drug therapy; Z99.81 Dependence on supplemental oxygen; Z79.84 Long term (current) use of oral hypoglycemic drugs
CPT/HCPCS: 36415; 71045; 80048; 80053; 81003; 82270; 82607; 82962; 83540; 83550; 83880; 84443; 84484; 85025; 85027; 85044; 87426; 93005; 93306; 94640; 99285; C1893; J1100; J1650; J7030